=== PATIENT | male | born 1995 | race Hispanic/Latino ===

== ENCOUNTER 2019-06-28 19:51 | Emergency (ER) | payer OTHER, SELFPAY ==
[2019-06-28] MEDS ORDERED: LIDOCAINE 1% W/EPI 1:100,000 MDV 20 ML VIAL ONE (21:11)
[2019-06-28] MEDS ORDERED: LIDOCAINE 1% MPF 30 ML VIAL ONE (21:11)
--- NOTE | 2019-06-28 22:06 | ER ---
Nurse's Notes [facility] Name: Clark Moreno Jr Age: 23 yrs Sex: Male : 1995 Arrival Date: 06/28/2019 Time: 19:55 Bed 5 Private MD: Diagnosis: Laceration of extensor muscle, fascia and tendon of right thumb at wrist and hand level Presentation: 06/28 19:55 Presenting complaint: Patient states: cut hand on glass about one hour ago. Transition ch of care: patient was not received from another setting of care. Complicating Factors: Glass or an other foreign body is present in the wound. possible glass. Onset of symptoms was June 28, 2019 at 19:00. Risk Assessment: Do you want to hurt yourself or someone else? Patient reports no desire to harm self or others. Initial Sepsis Screen: Does the patient meet any 2 criteria? No. Patient's initial sepsis screen is negative. Does the patient have a suspected source of infection? No. Patient's initial sepsis screen is negative. Care prior to arrival: None. 19:55 Method Of Arrival: Ambulatory 19:55 Acuity: RENZO 4 Triage Assessment: 19:56 General: Appears in no apparent distress. comfortable, Behavior is calm, cooperative. Historical: - Allergies: 19:56 No Known Allergies; - Home Meds: 19:56 None [Active]; - PMHx: 19:56 None; - PSHx: 19:56 None; - Immunization history:: Adult Immunizations up to date, Last tetanus immunization: > 10 years ago Flu vaccine is not up to date. - Social history:: Smoking status: Patient reports the use of cigarette tobacco products, denies chronic smoking, but will smoke occasionally, Patient uses alcohol, tonight. Patient/guardian denies using street drugs. - Ebola Screening: : Patient negative for fever greater than or equal to 101.5 degrees Fahrenheit, and additional compatible Ebola Virus Disease symptoms Patient denies exposure to infectious person Patient denies travel to an Ebola-affected area in the 21 days before illness onset No symptoms or risks identified at this time. Screenin:19 Abuse screen: Denies threats or abuse. Denies injuries from another. Nutritional screening: No deficits noted. Tuberculosis screening: No symptoms or risk factors identified. Fall Risk None identified. Assessment: 20:19 Reassessment: Patient appears in no apparent distress at this time. Patient and/or family updated on plan of care and expected duration. Pain level reassessed. Patient is alert, oriented x 3, equal unlabored respirations, skin warm/dry/pink. General: Appears in no apparent distress. Pain: Complains of pain in right hand Pain currently is 5 out of 10 on a pain scale. 20:40 Reassessment: Patient appears in no apparent distress at this time. 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 21:07 Reassessment: x rays completed. Musculoskeletal: Circulation, motion, and sensation ch intact. Injury Description: Laceration is clean, 2.6 to 7.5 cm long, not bleeding. 21:24 Reassessment: Patient appears in no apparent distress at this time. No changes from previously documented assessment. Patient and/or family updated on plan of care and expected duration. Pain level reassessed. Patient is alert, oriented x 3, equal unlabored respirations, skin warm/dry/pink. awaiting physician to suture pt. 22:16 Reassessment: Patient and/or family updated on plan of care and expected duration. Pain ea level reassessed. Patient is alert, oriented x 3, equal unlabored respirations, skin warm/dry/pink. Discharge instruction given to patient, verbalized the understanding of instruction. Vital Signs: 19:56 Weight 113.4 kg; Height 5 ft. 11 in. (180.34 cm); Pain 5/10; ch 20:19 BP 136 / 63; Pulse 98; Resp 14; Temp 98; Pulse Ox 99% on R/A; Pain 5/10; ch 19:56 Body Mass Index 34.87 (113.40 kg, 180.34 cm) ED Course: 19:55 Patient arrived in ED. 19:56 Triage completed. 19:56 Arm band placed on left wrist. Patient placed in an exam room. 20:03 Cristiane Wilson, RN is Primary Nurse. 20:19 No apparent distress. Resting quietly. ch 20:19 Patient has correct armband on for positive identification. Bed in low position. Call light in reach. Side rails up X 1. Adult w/ patient. Pulse ox on. NIBP on. 20:33 Primary Nurse role handed off by Cristiane Wilson, RN 20:33 Cristiane Wilson, RN is Primary Nurse. 20:54 Clyde Cowart MD is Attending Physician. tw4 21:33 Hand Right 3 View XRAY In Process Unspecified. EDMS 22:17 No provider procedures requiring assistance completed. Patient did not have IV access ea during this emergency room visit. Administered Medications: 22:14 Drug: [place] 5 mg-325 mg 1 tabs {Note: RASS 0.} Route: PO; ea 22:18 Follow up: Response: Medication administered at discharge. ea 22:14 Drug: Cleocin 300 mg Route: PO; ea 22:18 Follow up: Response: No adverse reaction ea 22:18 Follow up: Response: Medication administered at discharge. ea Outcome: 22:06 Discharge ordered by . tw4 22:17 Discharged to home ambulatory, with family. ea 22:17 Condition: stable 22:17 Discharge instructions given to patient, Instructed on discharge instructions, follow up and referral plans. medication usage, Demonstrated understanding of instructions, follow-up care, medications, Prescriptions given X 2. 22:18 Patient left the ED. ea Signatures: Dispatcher [employer] EDMS Cristiane Wilson, RN Theodora Rose ch RN Clyde Gonzalez ea, MD MD tw4 Corrections: (The following items were deleted from the chart) 20:20 20:19 BP 136 / 63; Pulse 98bpm; Resp 14bpm; Pulse Ox 99% RA; Temp 97.8F; Pain 5/10; [facility]
--- NOTE | 2019-06-28 22:07 | EDPHYS ---
Physician Documentation [facility] Name: Clark Moreno Jr Age: 23 yrs Sex: Male : 1995 Arrival Date: 06/28/2019 Time: 19:55 Bed 5 Private MD: ED Physician Clyde Cowart HPI: 06/28 22:07 This 23 yrs old Male presents to ER via Ambulatory with complaints of tw4 Laceration. 22:07 The patient or guardian reports a laceration, 2 cm(s). The complaints affect the Right tw4 first web space, . Context: The problem was sustained at home, resulted from picking up broken bottle. Onset: The symptoms/episode began/occurred today. Modifying factors: The symptoms are alleviated by nothing, the symptoms are aggravated by nothing. The patient has not experienced similar symptoms in the past. Historical: - Allergies: 19:56 No Known Allergies; ch - Home Meds: 19:56 None [Active]; ch - PMHx: 19:56 None; ch - PSHx: 19:56 None; ch - Immunization history:: Adult Immunizations up to date, Last tetanus immunization: > 10 years ago Flu vaccine is not up to date. - Social history:: Smoking status: Patient reports the use of cigarette tobacco products, denies chronic smoking, but will smoke occasionally, Patient uses alcohol, tonight. Patient/guardian denies using street drugs. - Ebola Screening: : Patient negative for fever greater than or equal to 101.5 degrees Fahrenheit, and additional compatible Ebola Virus Disease symptoms Patient denies exposure to infectious person Patient denies travel to an Ebola-affected area in the 21 days before illness onset No symptoms or risks identified at this time. ROS: 22:07 Constitutional: Negative for fever, chills, and weight loss, Eyes: Negative for injury, tw4 pain, redness, and discharge, Cardiovascular: Negative for chest pain, palpitations, and edema, Respiratory: Negative for shortness of breath, cough, wheezing, and pleuritic chest pain, Abdomen/GI: Negative for abdominal pain, nausea, vomiting, diarrhea, and constipation. 22:07 Skin: Negative for injury, rash, and discoloration, Neuro: Negative for headache, weakness, numbness, tingling, and seizure. 22:07 MS/extremity: Positive for injury or acute deformity, laceration, tenderness, Negative for abrasion, bite, contusion, decreased range of motion, deformity, erythema. Exam: 22:07 Constitutional: This is a well developed, well nourished patient who is awake, alert, tw4 and in no acute distress. Head/Face: Normocephalic, atraumatic. Chest/axilla: Normal chest wall appearance and motion. Nontender with no deformity. No lesions are appreciated. 22:07 Musculoskeletal/extremity: Extremities: noted in the Right first web space: laceration. Vital Signs: 19:56 Weight 113.4 kg; Height 5 ft. 11 in. (180.34 cm); Pain 5/10; ch 20:19 BP 136 / 63; Pulse 98; Resp 14; Temp 98; Pulse Ox 99% on R/A; Pain 5/10; ch 19:56 Body Mass Index 34.87 (113.40 kg, 180.34 cm) ch Laceration: 22:07 Wound Repair of 2cm ( 0.8in ) subcutaneous laceration to Right first web space. Linear tw4 shaped.. Distal neuro/vascular/tendon intact. Anesthesia: Local anesthetic administered with 4 mls of 1% lidocaine. Wound prep: Moderate cleansing by museum technician. Skin closed with 2 3-0 Ethilon using interrupted sutures and sterile technique. Dressed with Bacitracin, bandaid. Patient tolerated well. MDM: 21:41 Patient medically screened. tw4 22:07 Differential diagnosis: dislocation, contusion. Data reviewed: vital signs, nurses tw4 notes. Data interpreted: Pulse oximetry: Interpretation: normal. Counseling: I had a detailed discussion with the patient and/or guardian regarding: the historical points, exam findings, and any diagnostic results supporting the discharge/admit diagnosis. Special discussion: I discussed with the patient/guardian in detail that at this point there is no indication for admission to the hospital. It is understood, however, that if the symptoms persist or worsen the patient needs to return immediately for re-evaluation. 06/28 20:50 Order name: Hand Right 3 View XRAY aa1 Administered Medications: 22:14 Drug: [place] 5 mg-325 mg 1 tabs {Note: RASS 0.} Route: PO; ea 22:18 Follow up: Response: Medication administered at discharge. ea 22:14 Drug: Cleocin 300 mg Route: PO; ea 22:18 Follow up: Response: No adverse reaction ea 22:18 Follow up: Response: Medication administered at discharge. ea Disposition: 06/28/19 22:06 Discharged to Home. Impression: Laceration of extensor muscle, fascia and tendon of right thumb at wrist and hand level. - Condition is Stable. - Discharge Instructions: Laceration Care, Adult. - Prescriptions for Cleocin 300 mg Oral Capsule - take 1 capsule by ORAL route every 6 hours for 10 days; 40 capsule. Ibuprofen 800 mg Oral Tablet - take 1 tablet by ORAL route every 8 hours As needed take with food; 30 tablet. - Medication Reconciliation Form, Thank You Letter, Antibiotic Education, Prescription Opioid Use form. - Follow up: Private Physician; When: Upon discharge from the Emergency Department; Reason: Recheck today's complaints, Continuance of care. - Problem is new. - Symptoms have improved. Signatures: Dispatcher [employer] EDMS Cristiane Wilson RN RN ch Antunez, Elena, RN RN ea Wadley, Terrence, MD MD tw4 Corrections: (The following items were deleted from the chart) 22:18 22:06 06/28/2019 22:06 Discharged to Home. Impression: Laceration of extensor muscle, ea fascia and tendon of right thumb at wrist and hand level. Condition is Stable. Forms are Medication Reconciliation Form, Thank You Letter, Antibiotic Education, Prescription Opioid Use. Follow up: Private Physician; When: Upon discharge from the Emergency Department; Reason: Recheck today's complaints, Continuance of care. Problem is new. Symptoms have improved. tw4
[2019-06-28] MEDS ORDERED: HYDROCODONE/APAP 5/325 MG TAB ONE (22:13)
--- NOTE | 2019-06-29 08:43 | RAD REPORT ---
EXAM DESCRIPTION: RAD - Hand Right 3 View - 06/28/2019 9:33 pm CLINICAL HISTORY: Right hand pain status post injury FINDINGS: No fracture or dislocation is seen. A radiopaque foreign body is not seen
[2019-06-29 14:39] VITALS: BP 136/63; TEMP 98; O2SAT 99
== END 2019-06-28 22:18 | disposition home or self-care (01) ==
LOC: ER 19:51
PROC: 0JQJ0ZZ Repair Right Hand Subcutaneous Tissue and Fascia, Open Approach (ICD-10-PCS; principal; 2019-06-28)
DX: S66.221A Laceration of extensor muscle, fascia and tendon of right thumb at wrist and hand level, initial encounter (principal); W25.XXXA Contact with sharp glass, initial encounter; Y93.9 Activity, unspecified; Y92.9 Unspecified place or not applicable
CPT/HCPCS: 99284

== ENCOUNTER 2024-05-29 21:52 | Emergency (ER) | payer SELFPAY ==
--- NOTE | 2024-05-29 22:39 | ER ---
Nurse's Notes [facility] Name: Clark Moreno Jr Age: 28 yrs Sex: Male : 1995 Arrival Date: 05/29/2024 Time: 21:52 Bed 15 Private MD: Diagnosis: Laceration without foreign body of right ring finger without damage to nail Presentation: 05/29 22:06 Chief complaint: Patient states: MOVING SHEET METAL AND CUT MY FINGER. Coronavirus vc1 screen: Client denies travel out of the [place] in the last 14 days. At this time, the client does not indicate any symptoms associated with coronavirus-19. Ebola Screen: Patient negative for fever greater than or equal to 101.5 degrees Fahrenheit, and additional compatible Ebola Virus Disease symptoms Patient denies exposure to infectious person. Patient denies travel to an Ebola-affected area in the 21 days before illness onset. No symptoms or risks identified at this time. Initial Sepsis Screen: Does the patient meet any 2 criteria? No. Patient's initial sepsis screen is negative. Does the patient have a suspected source of infection? No. Patient's initial sepsis screen is negative. Risk Assessment: Do you want to hurt yourself or someone else? Patient reports no desire to harm self or others. Onset of symptoms was May 29, 2024. 22:06 Method Of Arrival: Ambulatory vc1 22:06 Acuity: RENZO 4 vc1 Triage Assessment: 22:13 General: Appears in no apparent distress. uncomfortable, obese, Behavior is calm, vc1 cooperative, appropriate for age. Pain: Complains of pain in right ring finger. EENT: No deficits noted. No signs and/or symptoms were reported regarding the EENT system. Neuro: Level of Consciousness is awake, alert, obeys commands, Oriented to person, place, time, situation, Appropriate for age. Cardiovascular: Capillary refill < 3 seconds Patient's skin is warm and dry. Respiratory: Airway is patent Respiratory effort is even, unlabored, Respiratory pattern is regular, symmetrical. GI: No deficits noted. No signs and/or symptoms were reported involving the gastrointestinal system. : No deficits noted. No signs and/or symptoms were reported regarding the genitourinary system. Derm: Skin is intact, is healthy with good turgor, Skin is dry, Skin is normal, Skin temperature is warm. Musculoskeletal: Circulation, motion, and sensation intact. Range of motion: intact in all extremities. Injury Description: Laceration sustained to right ring finger. Historical: - Allergies: 22:09 No Known Allergies; vc1 - Home Meds: 22:09 None [Active]; vc1 - PMHx: 22:09 None; vc1 - PSHx: 22:09 None; vc1 - Immunization history:: Last tetanus immunization: < 10 years ago GREATER THAN 5 YEARS. - Infectious Disease History:: Denies. - Social history:: Smoking status: Patient reports the use of cigarette tobacco products, denies chronic smoking, but will smoke occasionally, Patient uses alcohol, LIQUOR EVERY OTHER DAY. street drugs, SMOKES THC. - Family history:: not pertinent. - Hospitalizations: : No recent hospitalization is reported. Screenin:10 Abuse screen: Denies threats or abuse. Nutritional screening: No deficits noted. vc1 Tuberculosis screening: No symptoms or risk factors identified. 22:12 [facility] ED Fall Risk Assessment (Adult) History of falling in the last 3 months, vc1 including since admission No falls in past 3 months (0 pts) Confusion or Disorientation No (0 pts) Intoxicated or Sedated Yes (3 pts) Impaired Gait No (0 pts) Mobility Assist Device Used No (0 pt) Altered Elimination No (0 pt) Score/Fall Risk Level 3 or more points = High Risk Oriented to surroundings, Maintained a safe environment, Educated pt \T\ family on fall prevention, incl call for assistance when getting out of bed. Assessment: 22:34 Reassessment: PT FRUSTRATED AT WAIT TIME AND WALKED OUT OF ER. vc1 22:45 Reassessment: SEE TRIAGE ASSESSMENT. vc1 Vital Signs: 22:06 BP 153 / 95; Pulse 102; Resp 18; Temp 98.2; Pulse Ox 100% ; Weight 108.86 kg; Height 5 vc1 ft. 11 in. ; Pain 06/17; 22:06 Body Mass Index 33.47 (108.86 kg, 180.34 cm) vc1 22:06 Pain Scale: Adult vc1 ED Course: 21:53 Patient arrived in ED. im 21:53 Sukhjinder Mandel MD is Attending Physician. rn 22:08 Triage completed. vc1 22:10 Arm band placed on left wrist. vc1 22:11 Oseas, Luz, RN is Primary Nurse. kj2 22:12 Patient has correct armband on for positive identification. Bed in low position. Call vc1 light in reach. Provided Education on: APPLYING PRESSURE. Pulse ox on. NIBP on. 22:46 No provider procedures requiring assistance completed. Patient did not have IV access vc1 during this emergency room visit. Administered Medications: :45 CANCELLED (Patient Refused): lidocaine(1 %) 1 vials 5 ml Infiltration once; to bedside vc1 Medication: :46 VIS not applicable for this client. vc1 Outcome: 22:38 Discharge ordered by . rn 22:46 Discharged to home with significant other, vc1 22:46 Condition: good 22:46 Instructed on wound care, :46 Patient left the ED. vc1 Signatures: Sukhjinder Mandel MD MD rn Calcote, Vanessa, RN RN vc1 Allyson Han Krystal, RN RN kj2
--- NOTE | 2024-05-29 22:39 | EDPHYS ---
Physician Documentation [facility] Name: Clark Moreno Jr Age: 28 yrs Sex: Male : 1995 Arrival Date: 05/29/2024 Time: 21:52 Bed 15 Private MD: ED Physician Sukhjinder Mandel HPI: 05/29 22:34 This 28 yrs old Male presents to ER via Ambulatory with complaints of Finger rn Injury, Dizziness. 22:34 The patient or guardian reports a laceration, clean, 1.5 cm(s). The complaints affect rn the DIP of right ring finger. Onset: The symptoms/episode began/occurred just prior to arrival. Severity of symptoms: At their worst the symptoms were mild, in the emergency department the symptoms have improved. The patient has not experienced similar symptoms in the past. Patient reports accidental laceration from sheet-metal to the right ring finger. Reports had some drinks and tried to pick something up and sliced his finger. Bleeding controlled with pressure. Reports tetanus up-to-date. No other acute complaints.. Historical: - Allergies: 22:09 No Known Allergies; vc1 - Home Meds: 22:09 None [Active]; vc1 - PMHx: 22:09 None; vc1 - PSHx: 22:09 None; vc1 - Immunization history:: Last tetanus immunization: < 10 years ago GREATER THAN 5 YEARS. - Infectious Disease History:: Denies. - Social history:: Smoking status: Patient reports the use of cigarette tobacco products, denies chronic smoking, but will smoke occasionally, Patient uses alcohol, LIQUOR EVERY OTHER DAY. street drugs, SMOKES THC. - Family history:: not pertinent. - Hospitalizations: : No recent hospitalization is reported. ROS: 22:34 Constitutional: Negative for fever, chills, and weight loss, MS/Extremity: Positive for rn laceration to the right fourth digit Exam: 22:34 Constitutional: This is a well developed, well nourished patient who is awake, alert, rn and in no acute distress. MS/ Extremity: Pulses equal, no cyanosis. Neurovascular intact. Full, normal range of motion. 1.5 cm angulated laceration, superficial, to volar surface of the right fourth distal finger. No active bleeding. Vital Signs: 22:06 BP 153 / 95; Pulse 102; Resp 18; Temp 98.2; Pulse Ox 100% ; Weight 108.86 kg; Height 5 vc1 ft. 11 in. ; Pain 1/10; 22:06 Body Mass Index 33.47 (108.86 kg, 180.34 cm) vc1 22:06 Pain Scale: Adult vc1 MDM: 21:53 Medical Screening Exam initiated rn 22:34 Differential diagnosis: Laceration, foreign body. Data reviewed: vital signs, nurses rn notes, and as a result, I will discharge patient. Refusal of service: The patient/guardian displays adequate decision making capability and despite a detailed discussion of alternatives, benefits, risks, and consequences refuses: all X-rays, Sutures. ED course: Patient did not want sutures, did not allow us to get x-rays, walked out of the emergency room and care of spouse. Did not give any other reason for leaving.. 22:34 ED course: Patient left abruptly, did not allow me to suture wound or prescribe rn antibiotics.. Administered Medications: :45 CANCELLED (Patient Refused): lidocaine(1 %) 1 vials 5 ml Infiltration once; to bedside vc1 Disposition Summary: 05/29/24 22:38 Discharge Ordered Notes: Location: Home rn Problem: new rn Symptoms: have improved rn Condition: Stable rn Diagnosis - Laceration without foreign body of right ring finger without damage to nail rn Followup: rn - With: Private Physician - When: As needed - Reason: Recheck today's complaints, Re-evaluation by your physician Discharge Instructions: - Discharge Summary Sheet rn - Laceration Care, Adult rn Forms: - Medication Reconciliation Form rn - Antibiotic legal intern - Prescription Opioid Use rn - Patient Portal Instructions rn - Leadership Thank You Letter rn Signatures: Dispatcher [employer] EDSukhjinder Pascual MD MD rn Calcote, Vanessa, RN RN vc1 Corrections: (The following items were deleted from the chart) 22:44 22:01 Setup Suture Tray ordered. rn vc1 :45 22:01 Lidocaine Infiltration (1 %) 1 vials 5 ml Infiltration once; to bedside ordered. vc1 rn :45 22:01 Wound Care ordered. rn vc1 :45 22:01 Dressing - Wound ordered. rn vc1
[2024-05-29 22:50] VITALS: BP 153/95; TEMP 98.2; O2SAT 100
== END 2024-05-29 22:46 | disposition home or self-care (01) ==
LOC: ER 21:52
DX: S61.214A Laceration without foreign body of right ring finger without damage to nail, initial encounter (principal); Z53.29 Procedure and treatment not carried out because of patient's decision for other reasons
CPT/HCPCS: 99283